=== PATIENT | female | born 1960 | race Caucasian/White ===

== ENCOUNTER 2017-05-27 14:12 | Outpatient (CLI) | payer BC | END 2017-05-27 14:13 | disposition home or self-care (01) | LOC: BICULT 14:12 | PROVIDERS: ATTEND Surgery | DX: R22.1 Localized swelling, mass and lump, neck (principal) | CPT/HCPCS: 76999 ==

== ENCOUNTER 2017-05-30 16:41 | Outpatient (CLI) | payer BC ==
[2017-05-30 17:09] LABS: #Basophils 0.1 thou/uL (0.0-0.2); #Eosinphils 0.1 thou/uL (0.0-0.7); #Lymphocytes 2.4 thou/uL (1.20-3.40); #Monocytes 0.5 thou/uL (0.11-0.59); #Neutrophils 4.2 thou/uL (1.40-6.50); %Basophils 0.8 % (0.0-1.0); %Eosinophils 1.4 % (0.0-10.0); %Lymphocytes 33.5 % (21.0-51.0); %Monocytes 6.6 % (0.0-10.0); %Neutrophils 57.7 % (42.0-75.0); Hemoglobin 12.6 g/dL (12.0-16.0); Mean Corpuscular HGB CONC 33.5 g/dL (32.0-36.0); Mean Corpuscular Hemoglobin 30.3 pg (27.0-31.0); Mean Corpuscular Volume 90.3 fl (81.0-99.0); Mean Platelet Volume 6.7 fL (7.4-10.4); Platelet Count 346 thou/uL (130-400); RBC Distribution Width 11.1 % (11.5-14.5); Red Blood Cell (RBC) Count 4.17 mill/uL (4.20-5.40); White Blood Cell (WBC) Count 7.3 thou/uL (4.8-10.8)
[2017-05-30 17:28] LABS: ALT (SGPT) 20 U/L (8-55); AST (SGOT) 20 U/L (5-34); Albumin 4.5 g/dL (3.5-5.0); Alkaline Phosphatase 63 U/L (40-150); Anion Gap 10 mmol/L (10-20); BUN (Urea Nitrogen) 25 mg/dL (9.8-20.1); Bilirubin, Total 0.4 mg/dL (0.2-1.2); Calc. Creatinine Clearance 0 mL/min (70-130); Calcium 9.7 mg/dL (7.8-10.44); Carbon Dioxide 28 mmol/L (22-29); Chloride 106 mmol/L (98-107); Estimated GFR-MDRD 65; Globulin 2.6 g/dL (2.4-3.5); Glucose 90 mg/dL (70-105); Potassium 4.4 mmol/L (3.5-5.1); Protein, Total 7.1 g/dL (6.0-8.3); Sodium 140 mmol/L (136-145)
--- NOTE | 2017-06-12 22:54 | EKG ---
Test Reason : Blood Pressure : / mmHG Vent. Rate : 070 BPM Atrial Rate : 070 BPM P-R Int : 138 ms QRS Dur : 076 ms QT Int : 394 ms P-R-T Axes : 020 069 013 degrees QTc Int : 425 ms Normal sinus rhythm Low voltage QRS Borderline ECG No previous ECGs available Confirmed by Vj MOODY ([id number]) on 06/12/2017 10:53:43 PM Referred By: JOSSIE Confirmed By:Vj MOODY
== END 2017-05-30 16:42 | disposition home or self-care (01) ==
LOC: LABBT 16:41
PROVIDERS: ATTEND Surgery
DX: Z01.818 Encounter for other preprocedural examination (principal); R22.1 Localized swelling, mass and lump, neck
CPT/HCPCS: 80053; 85025; 93005; 93010

== ENCOUNTER → 2017-06-03 | Day surgery (SDC) | payer BC ==
[2017-05-30 16:54] VITALS: BMI 23.6
[~2017-06-03] MED LIST: Bupivacaine/Epinephrine 0.25% 30 ML VIAL ONE; CEFAZOLIN/Water 2 GM/20 ML SYRINGE ONE; Dexamethasone 20 MG/5 ML VIAL ONE; Fentanyl 100 MCG/2 ML VIAL ONE; Glycopyrrolate 0.2 MG/ML 5 ML SYRINGE ONE; Lidocaine 1% PF 5 ML VIAL ONE; Lidocaine 2% Jelly 5 ML TUBE ONE; Midazolam HCl 2 mg/2 ml Vial ONE; Ondansetron HCl/PF 4 MG/2 ML Vial ONE; Propofol 200 MG/20 ML VIAL ONE
--- NOTE | 2017-06-03 10:34 | OP ---
PREOPERATIVE DIAGNOSIS: Right neck mass. SURGEON: Wilmer Urias M.D. PROCEDURE PERFORMED: Excisional biopsy. INDICATIONS: This is a 57-year-old female who has a palpable mass in her anterior neck, which reveal s very superficial. Ultrasound was not diagnosed. It was too small to do an FNA. FINDINGS: About a 5 mm firm lymph node, just subplatysmal. DESCRIPTION OF PROCEDURE: After informed consent was obtained, the patient was taken to the operatin g room, given general mask anesthesia and placed in the supine position. Neck was prepped and draped in usual fashion. Local anesthesia infiltrated subcutaneously and deep. A transverse incision perf ormed in the direction of skin lines. Subcu divided sharply. The platysma was divided and was caref ully dissected off of it and retracted. The mass was dissected out very carefully with Mosquito hemo stat and then efferent and afferent lymphatics ligated and the mass was excised and sent fresh to [facility]. The efferent and afferent lymphatics ligated with 3-0 Vicryl ties. The platysma closed with interrupted 4-0 Vicryl. Skin closed with interrupted 4-0 Rapide. Dermabond applied. The patient t olerated the procedure well and was transferred to recovery in good condition. Sponge and needle cou nt verified correct x2.
== END ==
LOC: SDC 06:38
PROVIDERS: ATTEND Surgery
PROC: 0HB4XZZ Excision of Neck Skin, External Approach (ICD-10-PCS; principal; 2017-06-03)
DX: L98.0 Pyogenic granuloma (principal); J45.990 Exercise induced bronchospasm; E78.5 Hyperlipidemia, unspecified; Z79.899 Other long term (current) drug therapy; Z88.8 Allergy status to other drugs, medicaments and biological substances
CPT/HCPCS: 88184; 88305; J2250; J3010

== ENCOUNTER 2017-10-02 14:01 | Outpatient (CLI) | payer BC | END 2017-10-02 14:02 | disposition home or self-care (01) | LOC: BICMAMMO 14:01 | PROVIDERS: ATTEND Internal Medicine | DX: N63.20 Unspecified lump in the left breast, unspecified quadrant (principal); L90.5 Scar conditions and fibrosis of skin; Z85.3 Personal history of malignant neoplasm of breast; Z90.12 Acquired absence of left breast and nipple | CPT/HCPCS: 77066; G0279 ==

== ENCOUNTER 2020-01-05 15:39 | Outpatient (CLI) | payer BC ==
--- NOTE | 2020-01-05 16:29 | MMO ---
Bilateral MAMMO Bilat Screen [facility]. CLINICAL HISTORY: Patient is 59 years old and is seen for screening. The patient has no family history of breast cancer. The patient has a history of Excisional biopsy procedure revealed invasive ductal left breast carcinoma in October,; Excisional biopsy procedure revealed invasive ductal left breast carcinoma in September, and Excisional biopsy procedure revealed invasive Adenocarcinoma in the left breast in September,. The patient has a history of left Lumpectomy in October, - malignant. VIEWS: The views performed were: bilateral craniocaudal with tomosynthesis and bilateral mediolateral oblique with tomosynthesis. FILMS COMPARED: The present examination has been compared to prior imaging studies performed at [facility] on 09/20/2014, 10/10/2015, 12/14/2016 and 10/02/2017. This study has been interpreted with the assistance of computer-aided detection. MAMMOGRAM FINDINGS: There are scattered fibroglandular densities. There is a stable post-surgical scar seen in the left breast. There are no suspicious masses, suspicious calcifications, or new areas of architectural distortion. IMPRESSION: THERE IS NO MAMMOGRAPHIC EVIDENCE OF MALIGNANCY. A ROUTINE FOLLOW-UP MAMMOGRAM IN 1 YEAR IS RECOMMENDED. THE RESULTS OF THIS EXAM WERE SENT TO THE PATIENT. ACR BI-RADS Category 2 - Benign finding MAMMOGRAPHY NOTE: 1. A negative mammogram report should not delay a biopsy if a dominant of clinically suspicious mass is present. 2. Approximately 10% to 15% of breast cancers are not detected by mammography. 3. Adenosis and dense breasts may obscure an underlying neoplasm. Reported by: THAI DANIELS MD Electonically Signed: [id number]
== END 2020-01-05 15:40 | disposition home or self-care (01) ==
LOC: BICMAMMO 15:39
PROVIDERS: ATTEND Internal Medicine
DX: Z12.31 Encounter for screening mammogram for malignant neoplasm of breast (principal)
CPT/HCPCS: 77063; 77067

== ENCOUNTER 2021-02-17 14:47 | Outpatient (CLI) | payer BC | END 2021-02-17 14:48 | disposition home or self-care (01) | LOC: BICMAMMO 14:47 | PROVIDERS: ATTEND Internal Medicine | DX: Z12.31 Encounter for screening mammogram for malignant neoplasm of breast (principal); Z85.3 Personal history of malignant neoplasm of breast; Z98.890 Other specified postprocedural states | CPT/HCPCS: 77063; 77067 ==

== ENCOUNTER 2022-04-13 14:15 | Outpatient (CLI) | payer BC | END 2022-04-13 14:16 | disposition home or self-care (01) | LOC: BICMAMMO 14:15 | PROVIDERS: ATTEND Family Medicine | DX: Z12.31 Encounter for screening mammogram for malignant neoplasm of breast (principal); Z85.3 Personal history of malignant neoplasm of breast; Z98.890 Other specified postprocedural states | CPT/HCPCS: 77063; 77067 ==

== ENCOUNTER 2022-04-18 15:10 | Outpatient (CLI) | payer BC | END 2022-04-18 15:11 | disposition home or self-care (01) | LOC: BICMAMMO 15:10 | PROVIDERS: ATTEND Family Medicine | DX: N95.1 Menopausal and female climacteric states (principal) | CPT/HCPCS: 77080 ==

== ENCOUNTER 2023-05-28 15:19 | Outpatient (CLI) | payer BC | END 2023-05-28 15:20 | disposition home or self-care (01) | LOC: BICMAMMO 15:19 | PROVIDERS: ATTEND Family Medicine | DX: Z12.31 Encounter for screening mammogram for malignant neoplasm of breast (principal); Z85.3 Personal history of malignant neoplasm of breast; Z98.890 Other specified postprocedural states | CPT/HCPCS: 77063; 77067 ==